=== PATIENT | male | born 1975 ===

== ENCOUNTER 2023-02-27 23:31 | Emergency (ER) | payer BC ==
[~2023-02-27] VITALS: Ht 170.2 cm; Wt 72.6 kg
[2023-02-28 00:10] LABS: BASOPHILS 0.4 % (0-2); HEMATOCRIT 51.6 % (35.0-50.0); HEMOGLOBIN 17.5 g/dL (12.0-18.0); LYMPHOCYTES 6.6 % (24-44); MCH 31.6 (27-36); MCHC 33.9 g/dl (30-36); MCV 93.2 fl (81-99); MONOCYTES 3.3 % (0-12); NEUTROPHILS 89.7 % (39-80); PLATELET COUNT 376 K/uL (140-440); RBC 5.54 M/ul (4.3-5.7); RDW 13.4 (10.5-15.0)
[2023-02-28 00:24] LABS: ALBUMIN 4.9 g/dL (3.4-5.0); ALBUMIN/GLOBULIN RATIO 1.09 (1.1-2.4); BUN/CREATININE RATIO 14.4 (6.0-28.6); CALCIUM 11.1 mg/dL (8.5-10.1); CREATININE, SERUM 2.5 mg/dL (0.70-1.30); PROTEIN, TOTAL 9.4 g/dL (6.4-8.2)
[2023-02-28 00:25] LABS: MAGNESIUM 1.8 mg/dL (1.8-2.4)
[2023-02-28 02:34] LABS: BILIRUBIN, URINE NEGATIVE (negative); BLOOD/HGB, URINE SMALL (Negative); KETONE, URINE SMALL (Negative); LEUK ESTERASE, URINE NEGATIVE (negative); NITRITE, URINE NEGATIVE (negative); PH, URINE 6.5 (5-7)
[2023-02-28 02:41] LABS: EPITHELIAL CELLS, URINE SQUAMOUS 1+ /lpf (0-1+)
[2023-02-28 02:42] LABS: BACTERIA, URINE RARE /hpf (negative); CRYSTALS, URINE CALCIUM OXALATE 1+ (0-1+)
[2023-02-28 02:43] LABS: CASTS, URINE HYALINE 2+ \\lpf; REFLEX CULTURE, URINE No (No)
[2023-02-28 04:16] LABS: AMPHETAMINES, UR NEGATIVE (NEGATIVE); BARBITURATES, UR NEGATIVE (NEGATIVE); BENZODIAZEPINES, UR NEGATIVE (NEGATIVE); BUPRENORPHINE,UR NEGATIVE (NEGATIVE); COCAINE, UR NEGATIVE (NEGATIVE); MARIJUANA (THC), UR POSITIVE (NEGATIVE); MDMA, UR NEGATIVE (NEGATIVE); METHADONE, UR NEGATIVE (NEGATIVE); METHAMPHETAMINE, UR NEGATIVE (NEGATIVE); OPIATES, UR NEGATIVE (NEGATIVE); OXYCODONE, UR NEGATIVE (NEGATIVE); PHENCYCLIDINE, UR NEGATIVE (NEGATIVE); TRICYCLIC ANTIDEPRESSANT, UR NEGATIVE (NEGATIVE)
[2023-02-28 05:25] LABS: BUN/CREATININE RATIO 18.11 (6.0-28.6); CALCIUM 9.3 mg/dL (8.5-10.1); CREATININE, SERUM 1.38 mg/dL (0.70-1.30)
[2023-02-28 08:56] LABS: ANION GAP 13.2 (7-21); BUN/CREATININE RATIO 19.26 (6.0-28.6); CALCIUM 8.5 mg/dL (8.5-10.1); CREATININE, SERUM 1.09 mg/dL (0.70-1.30); POTASSIUM 4.2 mmol/L (3.5-5.1)
[2023-02-28 10:32] VITALS: BP 132/95
--- NOTE | 2023-02-28 20:27 | EKG ---
[facility] [address] [facility] [place] [address] Signed Normal sinus rhythm with sinus arrhythmia Prolonged QT Abnormal ECG No previous ECGs available Confirmed by Chris Brady MD ([id number]) on 02/28/2023 8:27:17 PM Electronically Signed By: CHRIS BRADY MD 02/28/232026 PATIENT NAME: GRACIELA BEATTY Electrocardiogram DATE OF : 73 PHYSICIAN: CHRIS BRADY MD REPORT #: [id number] REPORT IS CONFIDENTIAL AND NOT TO BE RELEASED WITHOUT AUTHORIZATION
== END 2023-02-28 10:32 | disposition home or self-care (01) ==
LOC: ED 23:31
PROVIDERS: Internal Medicine
DX: M62.82 Rhabdomyolysis (principal); I10 Essential (primary) hypertension; Z91.010 Allergy to peanuts
CPT/HCPCS: 36415; 71045; 80048; 80053; 81001; 82553; 83036; 83690; 83735; 84484; 85025; 93005; 93010; 96361; 96374; 96375; 99284-25; J2060; J2405; J7030; J7121